=== PATIENT | female | born 1990 | race Caucasian/White ===

== ENCOUNTER 2016-10-09 07:37 | Emergency (ER) | payer OTHER ==
[2016-10-09 08:36] LABS: BILIRUBIN NEGATIVE (NEGATIVE); BLOOD NEGATIVE Ery/uL (NEGATIVE); CLARITY CLEAR (CLEAR); COLOR YELLOW (YELLOW); GLUCOSE (U) NORMAL (NORMAL); KETONE (U) 1+ (SMALL) mg/dL (NEGATIVE); LEUKOCYTES TRACE Leu/uL (NEGATIVE); NITRITE NEGATIVE (NEGATIVE); PROTEIN NEGATIVE (NEGATIVE); UROBILINOGEN 0.2 mg/dL (0.2-1.0); pH 6.5 (5.0-9.0)
[2016-10-09 08:41] LABS: AMORPHOUS URATES CRYSTALS MODERATE; BACTERIA TRACE; URINARY RBC RARE
== END 2016-10-09 08:54 | disposition home or self-care (01) ==
LOC: FER 07:37
PROVIDERS: Emergency Medicine
DX: N39.0 Urinary tract infection, site not specified (principal); Z87.440 Personal history of urinary (tract) infections; Z87.442 Personal history of urinary calculi
CPT/HCPCS: 81001; 99283

== ENCOUNTER 2020-08-12 17:27 | Day surgery (SDCO) | payer OTHER ==
[~2020-08-12 17:27] MED LIST: COLACE100 MG PO; FLOMAX 0.4 MG0.4 MG PO; IBUPROFEN800 MG PO; KEFLEX500 MG PO; MACROBID100 MG PO; MOTRIN600 MG PO; NORCO 5-325 TA1 EACH PO; PERCOCET 5-3251 EACH PO; PHENERGAN12.5 M1 PO; PRENATAL FORMU1 EACH PO; ZOFRAN4 MG PO; ZOLOFT50 MG PO
[2020-08-12 18:48] LABS: BASOPHIL 0.3 % (0-2); EOSINOPHIL 0.7 % (0-5); HGB 12.6 g/dl (12.5-16.0); MCH 31.9 pg (25.0-31.0); MCHC 33.2 g/dL (32.0-36.0); MCV 96.2 fL (78.0-100.0); MONOCYTE 10.7 % (0-12); MPV 9.7 fL (6.0-9.5); NEUTROPHIL 79.6 % (41-80); NRBC 0; PLT 255 K/uL (150-400); RBC 3.95 M/uL (4.20-5.40); RDW 12.9 % (11.5-14.0); WBC 16.4 K/uL (4.0-10.5)
[2020-08-12 18:49] LABS: BILIRUBIN NEGATIVE (NEGATIVE); BLOOD 1+ Ery/uL (NEGATIVE); CLARITY CLEAR (CLEAR); COLOR YELLOW (YELLOW); GLUCOSE (U) NORMAL (NORMAL); LEUKOCYTES 1+ Leu/uL (NEGATIVE); NITRITE POSITIVE (NEGATIVE); PROTEIN TRACE (LOW) mg/dL (NEGATIVE); SPECIFIC GRAVITY 1.015 (1.001-1.030); UROBILINOGEN 0.2 mg/dL (0.2-1.0)
[2020-08-12 18:59] LABS: URINARY WBC TNTC
[2020-08-12 19:00] LABS: BACTERIA 4+; MUCOUS TRACE
[2020-08-12 19:28] LABS: ALBUMIN 3.9 g/dL (3.4-5.0); CREATININE 0.69 mg/dL (0.51-0.95); GLOBULIN (CALCULATION) 3.7 g/dL; POTASSIUM 3.4 mmol/L (3.5-5.1); TOTAL PROTEIN 7.6 g/dL (6.4-8.2)
[2020-08-12 19:34] LABS: LACTIC ACID 1.1 mmol/L (0.4-1.9)
[2020-08-12 21:31] LABS: CORONAVIRUS 2019 SARS-COV-2 NEGATIVE (NEGATIVE); INFLUENZA A NAA NEGATIVE (NEGATIVE)
[2020-08-12] MEDS ORDERED: ZOLOFT50 MG PO (23:07)
--- NOTE | 2020-08-13 00:25 | NUR ---
0005 TEMP 101.8. TYLENOL GIVEN; SEE MAR
[2020-08-13 05:38] LABS: BASOPHIL 0.3 % (0-2); EOSINOPHIL 0.4 % (0-5); HCT 31.4 % (37.0-47.0); HGB 10.5 g/dl (12.5-16.0); LYMPHOCYTE 17.1 % (15-48); MCH 32.6 pg (25.0-31.0); MCHC 33.4 g/dL (32.0-36.0); MCV 97.5 fL (78.0-100.0); MONOCYTE 10.7 % (0-12); MPV 9.6 fL (6.0-9.5); NEUTROPHIL 70.8 % (41-80); NRBC 0; PLT 175 K/uL (150-400); RBC 3.22 M/uL (4.20-5.40); RDW 12.9 % (11.5-14.0)
[2020-08-13 07:19] LABS: ALBUMIN 2.5 g/dL (3.4-5.0); BILIRUBIN - TOTAL 0.5 mg/dL (0.2-1.0); CREATININE 0.67 mg/dL (0.51-0.95); GLOBULIN (CALCULATION) 2.7 g/dL; POTASSIUM 3.4 mmol/L (3.5-5.1)
[2020-08-13 07:20] LABS: TOTAL PROTEIN 5.2 g/dL (6.4-8.2)
[2020-08-14 06:38] LABS: BASOPHIL 0.4 % (0-2); HCT 29.7 % (37.0-47.0); HGB 9.7 g/dl (12.5-16.0); LYMPHOCYTE 24.4 % (15-48); MCHC 32.7 g/dL (32.0-36.0); MONOCYTE 10.6 % (0-12); MPV 9.6 fL (6.0-9.5); NEUTROPHIL 62.1 % (41-80); NRBC 0; PLT 177 K/uL (150-400); RBC 3.03 M/uL (4.20-5.40); WBC 11.5 K/uL (4.0-10.5)
[2020-08-14 07:30] LABS: BUN/CREAT RATIO (CALC) 9.6 RATIO; CREATININE 0.52 mg/dL (0.51-0.95); POTASSIUM 3.7 mmol/L (3.5-5.1)
[2020-08-14] MEDS ORDERED: ZOFRAN4 M1 PO (11:44)
[2020-08-14] MEDS ORDERED: NORCO 5-325 TA1 EACH PO (11:44)
[2020-08-15] MEDS ORDERED: LEVAQUIN750 MG PO (12:00)
== END 2020-08-14 12:32 | disposition home or self-care (01) ==
LOC: FER 17:27 → FMS 21:21
PROVIDERS: Emergency Medicine; Emergency Medicine Emergency Medical Services; Internal Medicine; Nurse Practitioner; ADMIT Hospitalist
DX: A41.9 Sepsis, unspecified organism (principal); N39.0 Urinary tract infection, site not specified; F17.210 Nicotine dependence, cigarettes, uncomplicated; Z79.899 Other long term (current) drug therapy; Z20.822 Contact with and (suspected) exposure to COVID-19
CPT/HCPCS: 36415; 71250; 80048; 80053; 81001; 83605; 83690; 84145; 85025; 87040; 87076; 87088; 87186; G0378; J0696; J1170; J1885; J2270; J2405; J7030; U0002

== ENCOUNTER 2021-02-26 15:03 | Emergency (ER) | payer OTHER ==
[~2021-02-26 15:03] MED LIST changes: +LEVAQUIN750 MG PO; +ZOFRAN4 M1 PO
[2021-02-26 15:40] LABS: BASOPHIL 0.8 % (0-2); EOSINOPHIL 8.2 % (0-5); HCT 42.7 % (37.0-47.0); HGB 14.1 g/dl (12.5-16.0); LYMPHOCYTE 36.1 % (15-48); MCH 31.5 pg (25.0-31.0); MCV 95.5 fL (78.0-100.0); MONOCYTE 4.4 % (0-12); MPV 9.2 fL (6.0-9.5); NEUTROPHIL 50.4 % (41-80); NRBC 0; PLT 270 K/uL (150-400); RBC 4.47 M/uL (4.20-5.40); RDW 12.6 % (11.5-14.0); WBC 7.4 K/uL (4.0-10.5)
[2021-02-26 15:43] LABS: BILIRUBIN NEGATIVE (NEGATIVE); BLOOD TRACE-INTACT Ery/uL (NEGATIVE); CLARITY CLEAR (CLEAR); COLOR YELLOW (YELLOW); GLUCOSE (U) NORMAL (NORMAL); LEUKOCYTES NEGATIVE Leu/uL (NEGATIVE); NITRITE NEGATIVE (NEGATIVE); PROTEIN NEGATIVE (NEGATIVE); SPECIFIC GRAVITY 1.025 (1.001-1.030); UROBILINOGEN 0.2 mg/dL (0.2-1.0)
[2021-02-26 15:50] LABS: BACTERIA 2+; MUCOUS TRACE; SQUAMOUS EPITHELIAL CELLS >50; URINARY RBC RARE
[2021-02-26 17:48] LABS: ALBUMIN 4.1 g/dL (3.4-5.0); BILIRUBIN - TOTAL 0.4 mg/dL (0.2-1.0); BUN/CREAT RATIO (CALC) 20.8 RATIO; CREATININE 0.77 mg/dL (0.51-0.95); GLOBULIN (CALCULATION) 3.6 g/dL; PHOSPHORUS 4.4 mg/dL (2.6-4.7); TOTAL PROTEIN 7.7 g/dL (6.4-8.2)
[2021-02-26] MEDS ORDERED: MACROBID100 MG PO (18:36)
[2021-02-26] MEDS ORDERED: ZOFRAN4 M1 PO (18:37)
== END 2021-02-26 18:50 | disposition home or self-care (01) ==
LOC: FER 15:03
PROVIDERS: Emergency Medicine
DX: R10.32 Left lower quadrant pain (principal); R11.2 Nausea with vomiting, unspecified
CPT/HCPCS: 36415; 80053; 81001; 84100; 85025; 87088; J1885; J2405; J7040